=== PATIENT | male | born 1935 | race Caucasian/White ===

== ENCOUNTER → 2016-12-19 | Outpatient (CLI) | payer MEDICARE, BC ==
[~2016-12-19] MED LIST: ISOVUE-370 76% 100ML VIAL (Q9967) As Ordered ONE
--- NOTE | 2016-12-19 09:29 | REP ---
CT study of the brain without contrast followed by with contrast. 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 CT contrast dose: 75 ml of Isovue [address] findings: Digital lateral property assessment monitor radiograph is unremarkable. Bone window settings show no bony destructive lesions to suggest metastatic disease. The visualized paranasal sinuses are clear. There is fairly heavy vascular calcification in the distal carotid arteries bilaterally. On soft tissue window settings, the lateral, third, and fourth ventricles are normal in size and position. Johnson-white differentiation pattern is intact. There is no evidence of intracranial mass lesion. No abnormal contrast enhancement is seen on postcontrast images. Enhancement of normal vessels is seen. Impression: No evidence of intracranial or bony calvarial metastasis. Signed by Pietro Khanna MD 12/19/2016 10:14 A
== END ==
LOC: M RAD 07:56
PROVIDERS: ATTEND Internal Medicine Medical Oncology
DX: C43.4 Malignant melanoma of scalp and neck (principal)
CPT/HCPCS: 70470; Q9967

== ENCOUNTER → 2017-05-24 | Outpatient (REF) | payer MEDICARE, BC ==
[~2017-05-24] MED LIST changes: +ADV500INH INH; +BACT800T5 PO; +CALC500C16 PO; +COLA100C5 PO; +DIGO0.12 PO; +ENTR1TAB PO; +FLOM5CAP PO; +FURO40TA2 PO; -ISOVUE-370 76% 100ML VIAL (Q9967) As Ordered ONE; +MECL12.575 PO; +PRED10TA2 PO; +RANI150T PO; +SERT50TA PO; +TYLE1TAB5 PO
== END ==
LOC: M LAB REF 17:11
PROVIDERS: ATTEND Internal Medicine Pulmonary Disease
DX: J43.2 Centrilobular emphysema (principal)